=== PATIENT | female | born 1990 | race Caucasian/White ===

== ENCOUNTER 2017-06-12 09:52 | Emergency (ER) | payer OTHER ==
[~2017-06-12] VITALS: Ht 165.1 cm; Wt 83.0 kg
[~2017-06-12 09:52] MED LIST: ADDE30XR PO; HYDR-3533 PO; PERC5TAB12 PO; PHEN0.4T PO; PROM25TA5 PO; ZOFR4TAB3 SL
[2017-06-12 09:55] VITALS: BP 121/69; PULSE 68; RESP 16; TEMP 97.9; O2SAT 100
[2017-06-12] MEDS ORDERED: SODIUM CHLOR 0.9% 1000 ML INJ 1,000 ML IV SCH (10:11)
[2017-06-12 10:15] VITALS: O2SAT 100
[2017-06-12] MEDS ORDERED: ONDANSETRON HCL 4 MG/2 ML VIAL IVP ONE (10:15)
[2017-06-12] MEDS ORDERED: MORPHINE SULFATE 8 MG/ML INJ IV PUSH ONE (10:15)
[2017-06-12] MEDS ORDERED: KETOROLAC TROMETHAMINE 30 MG/ML (IVP) VIAL IVP ONE (10:15)
[2017-06-12] MEDS ORDERED: SODIUM CHLORIDE 0.9% FLUSH 10 ML FLUSH IV FLUSH PRN (10:15)
[2017-06-12 10:39] LABS: CHLORIDE 109 MEQ/L (98-107); POTASSIUM 4.3 MEQ/L (3.5-5.1); SODIUM (NA) 141 MEQ/L (136-145)
[2017-06-12 10:42] LABS: ANION GAP 8 MEQ/L (5-15); AUTOMATED NEUTROPHIL # 5.5 TH/MM3 (1.8-7.7); BASOPHIL # 0.2 TH/MM3 (0-0.2); BASOPHIL % 3.1 % (0.0-2.0); BICARBONATE 24.2 MEQ/L (21.0-32.0); BLOOD UREA NITROGEN 14 MG/DL (7-18); EOSINOPHIL % 0.1 % (0.0-4.0); HEMATOCRIT 32.5 % (35.0-46.0); LYMPH % 16.9 % (9.0-44.0); LYMPHOCYTE # 1.3 TH/MM3 (1.0-4.8); MEAN CELL VOLUME 74.9 FL (80.0-100.0); MEAN CORPUSCULAR HEMOGLOBIN 23.4 PG (27.0-34.0); MEAN CORPUSCULAR HGB CONC 31.3 % (32.0-36.0); MONO % 5.9 % (0.0-8.0); PLATELET COUNT 141 TH/MM3 (150-450); RED BLOOD COUNT 4.33 MIL/MM3 (4.00-5.30); RED CELL DISTRIBUTION WIDTH 17.3 % (11.6-17.2); WHITE BLOOD COUNT 7.4 TH/MM3 (4.0-11.0)
[2017-06-12 10:44] LABS: HEMO FLAGS AUTO DIFF
[2017-06-12 10:45] LABS: ALT (GPT) 16 U/L (10-53); AST (GOT) 14 U/L (15-37); GLOMERULAR FILTRATION RATE 116 ML/MIN (>89)
[2017-06-12 10:47] LABS: TOTAL BILIRUBIN ADULT 0.4 MG/DL (0.2-1.0)
[2017-06-12 10:48] LABS: ALKALINE PHOSPHATASE 71 U/L (45-117)
[2017-06-12 11:00] LABS: OVALOCYTES 1+ (NORMAL); PLATELET ESTIMATE SMEAR NORMAL (NORMAL); PLATELET MORPHOLOGY NORMAL (NORMAL); ROULEAUX PRESENT (NORMAL); SCAN/DIFF AUTO DIFF CONFIRMED
[2017-06-12 11:02] VITALS: BP 108/57; PULSE 78; RESP 19; O2SAT 100
--- NOTE | 2017-06-12 11:03 | RADRPT ---
EXAM DATE/TIME: 06/12/2017 10:32 [place] COMPARISON: CT ABDOMEN & PELVIS W/O CONTRAST, October 03, 2016, 1:22. INDICATIONS : Left flank pain with a history of previous stones. ORAL CONTRAST: No oral contrast ingested. RADIATION DOSE: 14.62 CTDIvol (mGy) MEDICAL HISTORY : Renal calculi. SURGICAL HISTORY : stone removal ENCOUNTER: Initial ACUITY: 1 day PAIN SCALE: 10/10 LOCATION: Left flank TECHNIQUE: Volumetric scanning of the abdomen and pelvis was performed. Using automated exposure control and adjustment of the mA and/or kV according to patient size, radiation dose was kept as low as reasonably achievable to obtain optimal diagnostic quality images. DICOM format image data is av ailable electronically for review and comparison. FINDINGS: CT Abdomen: There are 3 separate stones in the right kidney the largest measures almost 4 mm in size. There is moderate hydronephrosis in the left kidney not present previously due to and approximate 4- 5 mm mid ureteral stone which is one of the stones identified previously now migrated into the ureter . There is 4 mm stone in left upper pole kidney as well. The liver, spleen, pancreas, adrenals are u nremarkable. There is no evidence for any appreciable pathological adenopathy, free fluid, or bowel o bstruction. CT pelvis: There is no evidence for mass, abscess formation, or any significant adenopathy within the pelvis. There is chronic spondylolysis L5 bilaterally. CONCLUSION: There is an approximate 4-5 mm left mid ureteral stone which was in the left kidney o n the prior examination now migrated into the ureter causing moderate hydronephrosis. Marcelino Talley MD on June 12, 2017 at 10:57 Board Certified Radiologist. This report was verified electronically.
--- NOTE | 2017-06-12 11:06 | PD ---
HPI Chief Complaint: Flank/Kidney Pain Time Seen by Provider: 10:07 Travel History International Travel<30 days: No Contact w/Intl Traveler<30days: No Traveled to known affect area: No History of Present Illness HPI Patient is a 26 year old female, with history of renal stones, who comes in complaining of left flank pain and nausea. She says it started this morning, suddenly. She says it feels like in the past when she has had kidney stones. She denies any vomiting. She says she has been feeling sick lately, with what she thought was a sinus infection. She denies chest pain, cough, or SOB. She denies any dysuria. She went to an urgent care first, where she had a UA done, which showed blood in the urine. She was sent here or further management. [facility] Past Medical History ADD: Yes Diminished Hearing: No Kidney Stones: Yes Musculoskeletal: Yes (NEUROMUSCULAR DISEASE) Immunizations Current: Yes Tetanus Vaccination: < 5 Years ?: Not LMP: 06/05/17 Social History Alcohol Use: No Tobacco Use: No Substance Use: No Allergies-Medications (Allergen,Severity, Reaction): Coded Allergies: Latex (Verified Allergy, Severe, Rash, 06/12/17) Shellfish (Verified Allergy, Severe, 06/12/17) Omnicef (Verified Allergy, Unknown, 06/12/17) Seafood (Verified Allergy, Unknown, 06/12/17) Reported Meds & Prescriptions Reported Meds & Active Scripts Active Zofran Odt (Ondansetron Odt) 4 Mg Tab 4 Mg SL Q6HR PRN Percocet (Oxycodone-Acetaminophen) 5-325 mg Tab 1 Tab PO Q6H PRN Cipro (Ciprofloxacin HCl) 500 Mg Tab 500 Mg PO BID Flomax (Tamsulosin HCl) 0.4 Mg Cap 0.4 Mg PO HS Lortab (Hydrocodone-Acetaminophen) 5-325 Mg Tab 1 Tab PO Q6H PRN Review of Systems Except as stated in HPI: all other systems reviewed are Neg General / Constitutional: No: Chills Eyes: No: Blurred Vision HENT: Positive: Congestion, Nosebleed, No: Headaches, Lightheadedness Cardiovascular: No: Chest Pain or Discomfort Respiratory: No: Cough, Shortness of Breath Gastrointestinal: Positive: Nausea, Abdominal Pain, No: Vomiting Genitourinary: Positive: Flank Pain, No: Dysuria Musculoskeletal: No: Weakness Skin: No Rash, No Change in Pigmentation Neurologic: No: Weakness, Dizziness Physical Exam Narrative GENERAL: Awake and alert, in no acute distress. SKIN: Focused skin assessment warm/dry. HEAD: Atraumatic. Normocephalic. EYES: Pupils equal and round. No scleral icterus. ENT: No nasal bleeding or discharge. Mucous membranes pink and moist. NECK: Trachea midline. No JVD. CARDIOVASCULAR: Regular rate and rhythm. No murmur appreciated. RESPIRATORY: No accessory muscle use. Clear to auscultation. Breath sounds equal bilaterally. GASTROINTESTINAL: Abdomen soft, non-tender, nondistended. Left CVA tenderness. MUSCULOSKELETAL: No obvious deformities. No clubbing. No cyanosis. No edema. NEUROLOGICAL: Awake and alert. No obvious cranial nerve deficits. Motor grossly within normal limits. Normal speech. PSYCHIATRIC: Appropriate mood and affect; insight and judgment normal. Data Data Last Documented VS Vital Signs Date Time Temp Pulse Resp B/P Pulse Ox O2 Delivery O2 Flow Rate FiO2 06/12/17 12:25 122/80 100 06/12/17 11:02 78 19 Room Air 06/12/17 09:55 97.9 Orders Complete Blood Count With Diff (06/12/17 10:11) Comprehensive Metabolic Panel (06/12/17 10:11) Urinalysis - C+S If Indicated (06/12/17 10:11) Ua Includes Microscopic (06/12/17 10:11) Ct Abd/Pel W/O Iv Contrast (06/12/17 10:11) Iv Access Insert/Monitor (06/12/17 10:11) Ecg Monitoring (06/12/17 10:11) Oximetry (06/12/17 10:11) Ondansetron Inj (Zofran Inj) (06/12/17 10:15) Sodium Chlor 0.9% 1000 Ml Inj (Ns 1000 M (06/12/17 10:11) Sodium Chloride 0.9% Flush (Ns Flush) (06/12/17 10:15) Ketorolac Inj (Toradol Inj) (06/12/17 10:15) Ed Urine Pregnancytest Poc (06/12/17 10:11) Morphine Inj (Morphine Inj) (06/12/17 10:15) Oxycodone-Acetamin 5-325 Mg (Percocet (06/12/17 11:45) Urine Culture (06/12/17 11:49) Labs Laboratory Tests Test 06/12/17 06/12/17 10:15 11:49 White Blood Count 7.4 TH/MM3 Red Blood Count 4.33 MIL/MM3 Hemoglobin 10.1 GM/DL Hematocrit 32.5 % Mean Corpuscular Volume 74.9 FL Mean Corpuscular Hemoglobin 23.4 PG Mean Corpuscular Hemoglobin 31.3 % Concent Red Cell Distribution Width 17.3 % Platelet Count 141 TH/MM3 Mean Platelet Volume 10.4 FL Neutrophils (%) (Auto) 74.0 % Lymphocytes (%) (Auto) 16.9 % Monocytes (%) (Auto) 5.9 % Eosinophils (%) (Auto) 0.1 % Basophils (%) (Auto) 3.1 % Neutrophils # (Auto) 5.5 TH/MM3 Lymphocytes # (Auto) 1.3 TH/MM3 Monocytes # (Auto) 0.4 TH/MM3 Eosinophils # (Auto) 0.0 TH/MM3 Basophils # (Auto) 0.2 TH/MM3 CBC Comment AUTO DIFF Differential Comment AUTO DIFF CONFIRMED Platelet Estimate NORMAL Platelet Morphology Comment NORMAL Ovalocytes 1+ Rouleau PRESENT Sodium Level 141 MEQ/L Potassium Level 4.3 MEQ/L Chloride Level 109 MEQ/L Carbon Dioxide Level 24.2 MEQ/L Anion Gap 8 MEQ/L Blood Urea Nitrogen 14 MG/DL Creatinine 0.63 MG/DL Estimat Glomerular Filtration 116 ML/MIN Rate Random Glucose 96 MG/DL Calcium Level 8.5 MG/DL Total Bilirubin 0.4 MG/DL Aspartate Amino Transf 14 U/L (AST/SGOT) Alanine Aminotransferase 16 U/L (ALT/SGPT) Alkaline Phosphatase 71 U/L Total Protein 7.5 GM/DL Albumin 4.1 GM/DL Urine Collection Type CLEAN CATCH Urine Color YELLOW Urine Turbidity MOD Urine pH 5.5 Urine Specific [place] 1.031 Urine Protein 100 mg/dL Urine Glucose (UA) NEG mg/dL Urine Ketones 40 mg/dL Urine Occult Blood LARGE Urine Nitrite NEG Urine Bilirubin NEG Urine Leukocyte Esterase TRACE Urine RBC 100-200 /hpf Urine WBC 3-5 /hpf Urine Squamous Epithelial > 8 /hpf Cells Urine Amorphous Sediment MOD Urine Bacteria MOD /hpf Microscopic Urinalysis Comment CULTURE INDICATED Urine Collection Time 1149 MDM Medical Decision Making Medical Screen Exam Complete: Yes Emergency Medical Condition: Yes Medical Record Reviewed: Yes Differential Diagnosis UTI vs pyelonephritis vs renal stone Narrative Course Patient is a 26 year old female, with history of kidney stones, who comes in complaining of left flank pain. Exam shows left CVA tenderness. IV established , labs sent. Creatinine is within normal limits. WBCs within normal limits. Hgb is 10.1, but she did just finish her period. Given IVF, Zofran, Toradol, Morphine. CT abd/pelvis obtained, shows a left-sided renal stone at the UVJ, 4.6 mm. Patient has a urologist to follow up with. She still has some pain. Given Percocet. She'll be discharged with prescriptions for Flomax, Percocet, Cipro. She is advised to increase her fluid intake. Advised follow-up with urology. Advised to return to the ED as needed for any worsening symptoms. Diagnosis Primary Impression: Renal stone Additional Impression: Urinary tract infection Qualified Code: N30.01 - Acute cystitis with hematuria Patient Instructions: General Instructions, Kidney Stones (ED), Urinary Tract Infection in Women (ED) Additional Instructions: Take all of your antibiotic. Take ibuprofen for pain, and Percocet as needed for severe pain. Follow-up with your urologist. Increase her fluid intake. Return to the emergency department for any worsening symptoms. Scripts Phenazopyridine (Pyridium)100 Mg Adl197 Mg PO Q8HR 3 Days Ref 0 Prov:Jennifer Bill MD 06/12/17 Ondansetron Odt (Zofran Odt)4 Mg Tab4 Mg SL Q6HR PRN (Nausea/Vomiting) #10 TAB Ref 0 Prov:Jennifer Bill MD 06/12/17 Oxycodone-Acetaminophen (Percocet)5-325 mg Tab1 Tab PO Q6H PRN (PAIN) #12 TAB Ref 0 Prov:Jennifer Bill MD 06/12/17 Ciprofloxacin (Cipro)500 Mg Lie505 Mg PO BID #7 TAB Ref 0 Prov:Jennifer Bill MD 06/12/17 Tamsulosin (Flomax)0.4 Mg Cap0.4 Mg PO HS #7 CAP Ref 0 Prov:Jennifer Bill MD 06/12/17 Disposition: 01 DISCHARGE HOME Condition: Stable Jennifer Bill MD Jun 12, 2017 11:06
[2017-06-12] MEDS ORDERED: oxyCODONE/ACETAMINOPHEN 5 MG/325 MG TAB PO ONE (11:45)
[2017-06-12 11:57] LABS: BLOOD, URINE LARGE (NEG); GLUCOSE,URINE NEG (NEG); KETONE, URINE 40 mg/dL (NEG); NITRITE,URINE NEG (NEG); PH, URINE 5.5 (5.0-8.5)
[2017-06-12 12:04] LABS: METHOD OF COLLECTION CLEAN CATCH; URINE COLOR YELLOW (YELLW/STRAW)
[2017-06-12 12:06] LABS: RBC, URINE 100-200 /hpf (0-3)
[2017-06-12 12:07] LABS: BACTERIA, URINE MOD /hpf; COMMENT (UR) CULTURE INDICATED; COMMENT2 (UR) MUCOUS PRESENT; CULTURE IF INDICATED CULTURE INDICATED; SQUAMOUS EPITHELIAL CELL URINE > 8 /hpf (0-5)
[2017-06-12] MEDS ORDERED: CIPR-9 PO (12:15)
[2017-06-12] MEDS ORDERED: PERC5TAB12 PO (12:15)
[2017-06-12] MEDS ORDERED: TAMS5CAP PO (12:15)
[2017-06-12] MEDS ORDERED: ZOFR4TAB3 SL (12:16)
[2017-06-12 12:25] VITALS: BP 122/80
[2017-06-12] MEDS ORDERED: PHEN0.4T PO (12:32)
== END 2017-06-12 12:36 | disposition home or self-care (01) ==
LOC: PHED 09:52
DX: N20.2 Calculus of kidney with calculus of ureter (principal); N39.0 Urinary tract infection, site not specified; R31.9 Hematuria, unspecified; Z87.442 Personal history of urinary calculi
CPT/HCPCS: 74176; 80053; 81001; 84703; 85025; 87086; 96361; 96374; 96375; 99285; J1885; J2270; J2405; J7030

== ENCOUNTER 2017-06-13 17:31 | Inpatient (IN) | payer OTHER ==
[~2017-06-13] VITALS: Ht 165.1 cm; Wt 86.5 kg
[~2017-06-13 17:31] MED LIST changes: -ADDE30XR PO; +CIPR-9 PO; -PROM25TA5 PO; +TAMS5CAP PO
[2017-06-13 17:41] VITALS: BP 113/68; PULSE 73; RESP 14; TEMP 99.2; O2SAT 100
[2017-06-13 19:00] VITALS: BP 124/72; PULSE 78; RESP 20; O2SAT 100
[2017-06-13] MEDS ORDERED: SODIUM CHLOR 0.9% 1000 ML INJ 1,000 ML IV SCH (19:39)
--- NOTE | 2017-06-13 19:44 | PD ---
HPI Chief Complaint: Complaint Time Seen by Provider: 19:22 Travel History International Travel<30 days: No Contact w/Intl Traveler<30days: No Traveled to known affect area: No History of Present Illness HPI 26-year-old female complaining of left-sided abdominal pain and left flank pain. Patient states that the pain started yesterday. Patient was seen in emergency room yesterday and CT abdomen and pelvis shows 4-5 mm mid ureteral stone on the left side with moderate hydronephrosis. Patient was given IV fluid , pain medication and discharged home with prescription for Pyridium, Zofran, Percocet, Cipro and Flomax. Patient has intractable pain with persistent vomiting and unable to keep anything down today. Patient states that the pain is 10 out of 10. Patient denies any fever chills. Patient has history kidney stone and was seen by Dr. Bhatt in the past. [facility] Past Medical History ADD: Yes Diminished Hearing: No Kidney Stones: Yes Musculoskeletal: Yes (NEUROMUSCULAR DISEASE) Immunizations Current: Yes Tetanus Vaccination: < 5 Years Influenza Vaccination: No ?: Not LMP: 5 DAYS Past Surgical History Genitourinary Surgery: Yes (CYSTOSCOPY) Social History Alcohol Use: No Tobacco Use: No Substance Use: No Allergies-Medications (Allergen,Severity, Reaction): Coded Allergies: Latex (Verified Allergy, Severe, Rash, 06/13/17) Shellfish (Verified Allergy, Severe, 06/13/17) Omnicef (Verified Allergy, Unknown, 06/13/17) Seafood (Verified Allergy, Unknown, 06/13/17) Reported Meds & Prescriptions Reported Meds & Active Scripts Active Pyridium (Phenazopyridine HCl) 100 Mg Tab 100 Mg PO Q8HR 3 Days Zofran Odt (Ondansetron Odt) 4 Mg Tab 4 Mg SL Q6HR PRN Percocet (Oxycodone-Acetaminophen) 5-325 mg Tab 1 Tab PO Q6H PRN Cipro (Ciprofloxacin HCl) 500 Mg Tab 500 Mg PO BID Flomax (Tamsulosin HCl) 0.4 Mg Cap 0.4 Mg PO HS Review of Systems General / Constitutional: No: Fever Eyes: No: Visual changes HENT: No: Headaches Cardiovascular: No: Chest Pain or Discomfort Respiratory: No: Shortness of Breath Gastrointestinal: Positive: Nausea, Vomiting, Abdominal Pain Genitourinary: No: Dysuria Musculoskeletal: No: Pain Skin: No Rash Neurologic: No: Weakness Psychiatric: No: Depression Endocrine: No: Polydipsia Hematologic/Lymphatic: No: Easy Bruising Physical Exam Narrative GENERAL: Well-nourished, well-developed patient. SKIN: Focused skin assessment warm/dry. HEAD: Normocephalic. EYES: No scleral icterus. No injection or drainage. NECK: Supple, trachea midline. No JVD or lymphadenopathy. CARDIOVASCULAR: Regular rate and rhythm without murmurs, gallops, or rubs. RESPIRATORY: Breath sounds equal bilaterally. No accessory muscle use. GASTROINTESTINAL: Abdomen soft, nondistended. Patient has mild to moderate tenderness mid abdomen and left flank area. MUSCULOSKELETAL: No cyanosis, or edema. BACK: Nontender without obvious deformity. No CVA tenderness. Neurologic exam normal. Data Data Last Documented VS Vital Signs Date Time Temp Pulse Resp B/P Pulse Ox O2 Delivery O2 Flow Rate FiO2 06/13/17 19:00 78 20 124/72 100 Room Air 06/13/17 17:41 99.2 Orders Ed Urine Pregnancytest Poc (06/13/17 19:31) Basic Metabolic Panel (Bmp) (06/13/17 19:39) Complete Blood Count With Diff (06/13/17 19:39) Iv Access Insert/Monitor (06/13/17 19:39) Ecg Monitoring (06/13/17 19:39) Oximetry (06/13/17 19:39) Ondansetron Inj (Zofran Inj) (06/13/17 19:45) Pantoprazole Inj (Protonix Inj) (06/13/17 19:45) Sodium Chlor 0.9% 1000 Ml Inj (Ns 1000 M (06/13/17 19:39) Hydromorphone Pf Inj (Dilaudid Pf Inj) (06/13/17 19:45) MDM Medical Decision Making Medical Screen Exam Complete: Yes Emergency Medical Condition: Yes Medical Record Reviewed: Yes Differential Diagnosis Differential diagnosis including nephrolithiasis, pyelonephritis. Narrative Course 26-year-old female with intractable pain left flank and left mid abdomen area. CT abdomen and pelvis yesterday positive for left kidney stone with hydronephrosis. Patient has intractable pain with persistent nausea vomiting. Normal saline solution 1 25 cc an hour. Dilaudid 1 mg IV. Zofran 4 mg IV. Diagnosis Primary Impression: Nephrolithiasis Additional Impression: Intractable abdominal pain Admitting Information Admitting Physician Requests: Admit Jose Alejandro Danielson MD Jun 13, 2017 19:44
[2017-06-13] MEDS ORDERED: HYDROmorphone HCL PF 1 MG/ML VIAL IVS ONE (19:45)
[2017-06-13] MEDS ORDERED: ONDANSETRON HCL 4 MG/2 ML VIAL IVP ONE (19:45)
[2017-06-13] MEDS ORDERED: PANTOPRAZOLE SODIUM 40 MG VIAL IVP ONE (19:45)
[2017-06-13 19:50] LABS: AUTOMATED NEUTROPHIL # 7.1 TH/MM3 (1.8-7.7); BASOPHIL # 0.1 TH/MM3 (0-0.2); BASOPHIL % 0.6 % (0.0-2.0); EOSINOPHIL % 0.4 % (0.0-4.0); HEMATOCRIT 30.4 % (35.0-46.0); LYMPH % 15.9 % (9.0-44.0); LYMPHOCYTE # 1.6 TH/MM3 (1.0-4.8); MEAN CELL VOLUME 75.3 FL (80.0-100.0); MEAN CORPUSCULAR HEMOGLOBIN 23.2 PG (27.0-34.0); MEAN CORPUSCULAR HGB CONC 30.9 % (32.0-36.0); MONO % 10.8 % (0.0-8.0); NEUT % 72.3 % (16.0-70.0); PLATELET COUNT 144 TH/MM3 (150-450); RED BLOOD COUNT 4.04 MIL/MM3 (4.00-5.30); RED CELL DISTRIBUTION WIDTH 16.9 % (11.6-17.2); WHITE BLOOD COUNT 9.9 TH/MM3 (4.0-11.0)
[2017-06-13 19:53] VITALS: BP 107/72; PULSE 82; RESP 16; O2SAT 100
[2017-06-13 19:54] VITALS: BP 107/72; PULSE 82; RESP 16; O2SAT 99
[2017-06-13] MEDS ORDERED: BISACODYL 10 MG SUPP RECTAL PRN (20:00)
[2017-06-13] MEDS ORDERED: SENNOSIDES 8.6 MG TAB PO PRN (20:00)
[2017-06-13] MEDS ORDERED: LACTULOSE SYRUP 20 GM/30 ML CUP PO PRN (20:00)
[2017-06-13] MEDS ORDERED: SODIUM CHLORIDE 0.9% FLUSH 10 ML FLUSH IV FLUSH PRN (20:00)
[2017-06-13] MEDS ORDERED: ACETAMINOPHEN 325 MG TAB PO PRN (20:00)
[2017-06-13] MEDS ORDERED: MAGNESIUM HYDROXIDE SUSP 30 ML CUP PO PRN (20:00)
[2017-06-13 20:01] LABS: HEMO FLAGS AUTO DIFF
[2017-06-13 20:04] LABS: POTASSIUM 3.5 MEQ/L (3.5-5.1)
[2017-06-13 20:07] LABS: BICARBONATE 24.2 MEQ/L (21.0-32.0)
[2017-06-13 20:33] VITALS: BP 104/70; PULSE 82; RESP 16; O2SAT 98
[2017-06-13 20:52] LABS: OVALOCYTES 2+ (NORMAL)
[2017-06-13 20:53] LABS: PLATELET ESTIMATE SMEAR LOW (NORMAL); PLATELET MORPHOLOGY NORMAL (NORMAL); SCAN/DIFF AUTO DIFF CONFIRMED
[2017-06-13] MEDS: CIPROFLOXACIN 400 MG PREMIX 200 ML IV SCH (20:54)
[2017-06-13] MEDS: SODIUM CHLOR 0.9% 1000 ML INJ 1,000 ML IV SCH (20:54)
[2017-06-13] MEDS: SODIUM CHLORIDE 0.9% FLUSH 10 ML FLUSH IV FLUSH SCH (21:00)
[2017-06-13 21:12] VITALS: BP 106/71; PULSE 73; RESP 20; TEMP 98.9; O2SAT 98
[2017-06-13] MEDS: DOCUSATE SODIUM 50 MG/SENNA 8.6 MG TAB PO SCH (21:47)
[2017-06-13] MEDS: ONDANSETRON HCL 4 MG/2 ML VIAL IVP PRN (23:18)
[2017-06-13] MEDS: HYDROmorphone HCL PF 1 MG/ML VIAL IV PRN (23:19)
[2017-06-14] VITALS: BP 106/68; PULSE 73; RESP 20; TEMP 97.4; O2SAT 97
[2017-06-14] MEDS: SODIUM CHLOR 0.9% 1000 ML INJ 1,000 ML IV SCH ×2 (05:23→15:49)
[2017-06-14] MEDS: HYDROmorphone HCL PF 1 MG/ML VIAL IV PRN ×5 (05:24→23:29)
[2017-06-14] MEDS: ONDANSETRON HCL 4 MG/2 ML VIAL IVP PRN ×4 (05:31→23:28)
[2017-06-14 06:45] LABS: AUTOMATED NEUTROPHIL # 6.4 TH/MM3 (1.8-7.7); BASOPHIL % 0.4 % (0.0-2.0); EOSINOPHIL % 0.1 % (0.0-4.0); HEMATOCRIT 28.2 % (35.0-46.0); LYMPH % 12.9 % (9.0-44.0); LYMPHOCYTE # 1.1 TH/MM3 (1.0-4.8); MEAN CELL VOLUME 74.9 FL (80.0-100.0); MEAN CORPUSCULAR HEMOGLOBIN 22.8 PG (27.0-34.0); MEAN CORPUSCULAR HGB CONC 30.4 % (32.0-36.0); MONO % 12.3 % (0.0-8.0); NEUT % 74.3 % (16.0-70.0); PLATELET COUNT 121 TH/MM3 (150-450); RED BLOOD COUNT 3.76 MIL/MM3 (4.00-5.30); RED CELL DISTRIBUTION WIDTH 16.6 % (11.6-17.2); WHITE BLOOD COUNT 8.6 TH/MM3 (4.0-11.0)
[2017-06-14 06:53] LABS: HEMO FLAGS AUTO DIFF
[2017-06-14 07:00] LABS: CHLORIDE 113 MEQ/L (98-107); POTASSIUM 3.8 MEQ/L (3.5-5.1); SODIUM (NA) 145 MEQ/L (136-145)
[2017-06-14 07:25] LABS: OVALOCYTES 1+ (NORMAL)
[2017-06-14 07:26] LABS: PLATELET ESTIMATE SMEAR LOW (NORMAL); PLATELET MORPHOLOGY NORMAL (NORMAL); ROULEAUX PRESENT (NORMAL); SCAN/DIFF AUTO DIFF CONFIRMED
[2017-06-14 07:32] LABS: ALKALINE PHOSPHATASE 61 U/L (45-117); ALT (GPT) 11 U/L (10-53); ANION GAP 8 MEQ/L (5-15); AST (GOT) 11 U/L (15-37); BICARBONATE 24.3 MEQ/L (21.0-32.0); BLOOD UREA NITROGEN 8 MG/DL (7-18); GLOMERULAR FILTRATION RATE 76 ML/MIN (>89); TOTAL BILIRUBIN ADULT 0.6 MG/DL (0.2-1.0)
--- NOTE | 2017-06-14 07:55 | HHI.HP ---
[facility] Non[facility]Staff Admission Diagnosis nephrolithiasis. Intractable pain. Diagnoses: (1) Nephrolithiasis Diagnosis: Principal Chief Complaint: left flank pain Travel History International Travel<30 Days: No Contact w/Intl Traveler <30 Da: No Traveled to Known Affected Are: No History of Present Illness patient is a 26 y/o female with history of nephrolithiasis who presented to ER with left flank pain. she says that the pain started two days ago. pain was localized to left flank. pain was associated with nausea and vomiting. she came to ER and was discharged with cipro and percoect. she says that the pain didn't subside despite taking the pain medications. she reports some fever and chills at home along with dysuria and gross hematuria. she has a history of kidney stone and she says that she had cystoscopy last October. Review of Systems Constitutional: COMPLAINS OF: Fever, Chills, DENIES: Weight loss, Night Sweats Eyes: DENIES: Blurred vision, Diplopia, Vision loss, Double Vision Ears, nose, mouth, throat: DENIES: Tinnitus, Vertigo, Throat pain, Epistaxis Respiratory: DENIES: Apneas, Cough, Snoring, Wheezing, Hemoptysis, Sputum production, Shortness of breath Cardiovascular: DENIES: Chest pain, Palpitations, Syncope, Dyspnea on Exertion , PND, Lower Extremity Edema, Orthopnea, Claudication Gastrointestinal: COMPLAINS OF: Abdominal pain, Nausea, Vomiting, DENIES: Black stools, Bloody stools, Constipation, Diarrhea, Difficulty Swallowing, Anorexia Genitourinary: COMPLAINS OF: Hematuria, Dysuria, DENIES: Urinary frequency, Urgency Musculoskeletal: DENIES: Joint pain, Muscle aches, Stiffness, Joint Swelling Integumentary: DENIES: Rash Neurologic: DENIES: Abnormal gait, Headache, Localized weakness, Paresthesias, Seizures, Speech Problems, Tremor, Poor Balance Psychiatric: DENIES: Anxiety, Confusion, Mood changes, Depression, Hallucinations, Agitation, Suicidal Ideation, Homicidal Ideation, Delusions Past Family Social History Past Medical History neuromuscular disorder kidney stone Past Surgical History cystoscopy Reported Medications none Allergies: Coded Allergies: Latex (Verified Allergy, Severe, Rash, 06/13/17) Shellfish (Verified Allergy, Severe, 06/13/17) Omnicef (Verified Allergy, Unknown, 06/13/17) Seafood (Verified Allergy, Unknown, 06/13/17) Active Ordered Medications Current Medications Ondansetron HCl (Zofran Inj) 4 mg ONCE ONCE IVP Last administered on 19:52; Start 06/13/17 at 19:45; Stop 06/13/17 at 19:46; Status DC Pantoprazole Sodium 40 mg 40 mg ONCE ONCE IVP Last administered on 06/13/17 19:51; Start 06/13/17 at 19:45; Stop 06/13/17 at 19:46; Status DC Sodium Chloride (NS 1000 ml Inj) 1,000 ml @ 125 mls/hr Q8H IV Last administered on 06/13/17 19:52; Start 06/13/17 at 19:39; Stop 06/14/17 at 03:38 ; Status DC Hydromorphone HCl 1 mg 1 mg ONCE ONCE IVS Last administered on 06/13/17 19:52 ; Start 06/13/17 at 19:45; Stop 06/13/17 at 19:46; Status DC Ciprofloxacin/ Dextrose 200 ml @ 200 mls/hr Q12H IV Last administered on 20:54; Start 06/13/17 at 20:00 Sodium Chloride (NS 1000 ml Inj) 1,000 ml @ 100 mls/hr Q10H IV Last administered on 06/14/17 05:23; Start 06/13/17 at 19:49 Sodium Chloride (NS Flush) 2 ml UNSCH PRN IV FLUSH FLUSH AFTER USING IV ACCESS ; Start 06/13/17 at 20:00 Sodium Chloride (NS Flush) 2 ml BID IV FLUSH ; Start 06/13/17 at 21:00 Ondansetron HCl (Zofran Inj) 4 mg Q6H PRN IVP NAUSEA OR VOMITING Last administered on 06/14/17 05:31; Start 06/13/17 at 20:00 Acetaminophen (Tylenol) 650 mg Q6H PRN PO FEVER/PAIN SCALE 1 TO 2; Start at 20:00 Acetaminophen/ Hydrocodone Bitart ([place] 5-325 Mg) 1 tab Q4H PRN PO PAIN SCALE 3 TO 5; Start 06/13/17 at 20:00 Hydromorphone HCl (Dilaudid Pf Inj) 1 mg Q3H PRN IV Pain 6-10 Last administered on 06/14/17 05:24; Start 06/13/17 at 20:00 Senna/Docusate Sodium (Sally-Colace) 1 tab BID PO Last administered on 21:47; Start 06/13/17 at 21:00 Magnesium Hydroxide (Milk Of Magnesia Liq) 30 ml Q12H PRN PO MILD - MODERATE CONSTIPATION; Start 06/13/17 at 20:00 Sennosides (Senokot) 17.2 mg Q12H PRN PO MODERATE - SEVERE CONSTIPATION; Start 06/13/17 at 20:00 Bisacodyl (Dulcolax Supp) 10 mg DAILY PRN RECTAL SEVERE CONSITIPATION; Start at 20:00 Lactulose (Lactulose Liq) 30 ml DAILY PRN PO SEVERE CONSITIPATION; Start at 20:00 Family History not significant. Social History no smoking or drinking. Physical Exam Vital Signs Vital Signs Date Time Temp Pulse Resp B/P Pulse Ox O2 Delivery O2 Flow Rate FiO2 06/14/17 00:00 97.4 73 20 106/68 97 06/13/17 21:12 98.9 73 20 106/71 98 06/13/17 20:33 82 16 104/70 98 Room Air 06/13/17 19:54 82 16 107/72 99 Room Air 06/13/17 19:53 82 16 107/72 100 Room Air 06/13/17 19:00 78 20 124/72 100 Room Air 06/13/17 18:26 06/13/17 17:41 99.2 73 14 113/68 100 Room Air Physical Exam GENERAL: This is a well-nourished, well-developed patient, in no apparent distress. SKIN: No rashes, ecchymoses or lesions. Cool and dry. HEAD: Atraumatic. Normocephalic. No temporal or scalp tenderness. EYES: Pupils equal round and reactive. Extraocular motions intact. No scleral icterus. No injection or drainage. ENT: Nose without bleeding, purulent drainage or septal hematoma. Throat without erythema, tonsillar hypertrophy or exudate. Uvula midline. Airway patent. NECK: Trachea midline. No JVD or lymphadenopathy. Supple, nontender, no meningeal signs. CARDIOVASCULAR: Regular rate and rhythm without murmurs, gallops, or rubs. RESPIRATORY: Clear to auscultation. Breath sounds equal bilaterally. No wheezes , rales, or rhonchi. GASTROINTESTINAL: left flank tenderness MUSCULOSKELETAL: Extremities without clubbing, cyanosis, or edema. No joint tenderness, effusion, or edema noted. No calf tenderness. Negative Homans sign bilaterally. NEUROLOGICAL: Awake and alert. Cranial nerves II through XII intact. Motor and sensory grossly within normal limits. Five out of 5 muscle strength in all muscle groups. Normal speech. Laboratory Laboratory Tests Test 06/13/17 06/14/17 19:30 05:15 White Blood Count 9.9 8.6 Red Blood Count 4.04 3.76 Hemoglobin 9.4 8.6 Hematocrit 30.4 28.2 Mean Corpuscular Volume 75.3 74.9 Mean Corpuscular Hemoglobin 23.2 22.8 Mean Corpuscular Hemoglobin 30.9 30.4 Concent Red Cell Distribution Width 16.9 16.6 Platelet Count 144 121 Mean Platelet Volume 12.7 12.0 Neutrophils (%) (Auto) 72.3 74.3 Lymphocytes (%) (Auto) 15.9 12.9 Monocytes (%) (Auto) 10.8 12.3 Eosinophils (%) (Auto) 0.4 0.1 Basophils (%) (Auto) 0.6 0.4 Neutrophils # (Auto) 7.1 6.4 Lymphocytes # (Auto) 1.6 1.1 Monocytes # (Auto) 1.1 1.1 Eosinophils # (Auto) 0.0 0.0 Basophils # (Auto) 0.1 0.0 CBC Comment AUTO DIFF AUTO DIFF Differential Comment AUTO DIFF AUTO DIFF CONFIRMED CONFIRMED Platelet Estimate LOW LOW Platelet Morphology Comment NORMAL NORMAL Ovalocytes 2+ 1+ Sodium Level 144 145 Potassium Level 3.5 3.8 Chloride Level 112 113 Carbon Dioxide Level 24.2 24.3 Anion Gap 8 8 Blood Urea Nitrogen 10 8 Creatinine 0.95 0.91 Estimat Glomerular Filtration 72 76 Rate Random Glucose 81 85 Calcium Level 8.4 8.2 Rouleau PRESENT Total Bilirubin 0.6 Aspartate Amino Transf 11 (AST/SGOT) Alanine Aminotransferase 11 (ALT/SGPT) Alkaline Phosphatase 61 Total Protein 6.3 Albumin 3.3 Result Diagram: 06/14/1715 06/14/1715 Assessment and Plan Assessment and Plan A/P - nephrolithiasis with left sided hydronephrosis continue with supportive care with IV fluid, pain control and antiemetics as needed. urology consulted. -anemia- hypochromic, microcytic- chronic- check iron panel and will monitor. Discussed Condition With the patient. Physician Certification 2 Midnight Certification Type: Admission for Inpatient Services Order for Inpatient Services The services are ordered in accordance with Medicare regulations or non- Medicare payer requirements, as applicable. In the case of services not specified as inpatient-only, they are appropriately provided as inpatient services in accordance with the 2-midnight benchmark. Estimated LOS (days): 2 days is the estimated time the patient will need to remain in the hospital, assuming treatment plan goals are met and no additional complications. Post-Hospital Plan: Home Krishna Tobias MD Jun 14, 2017 07:55
[2017-06-14 08:00] VITALS: BP 102/63; PULSE 74; RESP 16; TEMP 97.6; O2SAT 98
[2017-06-14] MEDS: CIPROFLOXACIN 400 MG PREMIX 200 ML IV SCH ×2 (08:33→19:31)
[2017-06-14] MEDS: SODIUM CHLORIDE 0.9% FLUSH 10 ML FLUSH IV FLUSH SCH ×2 (08:41→19:31)
[2017-06-14] MEDS: DOCUSATE SODIUM 50 MG/SENNA 8.6 MG TAB PO SCH ×2 (08:42→19:30)
[2017-06-14 12:00] VITALS: BP 95/61; PULSE 64; RESP 16; TEMP 98.5; O2SAT 95
[2017-06-14 13:40] LABS: FERRITIN 5 NG/ML (8-252); TRANSFERRIN IRON PROFILE 244 MG/DL (200-360)
[2017-06-14 16:00] VITALS: BP 100/73; PULSE 83; RESP 16; TEMP 99.3; O2SAT 100
[2017-06-14 20:00] VITALS: BP 125/82; PULSE 94; RESP 18; TEMP 100.4; O2SAT 99
[2017-06-15] VITALS: BP 98/70; PULSE 81; RESP 16; TEMP 97.2; O2SAT 98
[2017-06-15] MEDS: SODIUM CHLOR 0.9% 1000 ML INJ 1,000 ML IV SCH ×3 (01:37→20:16)
[2017-06-15] MEDS: HYDROmorphone HCL PF 1 MG/ML VIAL IV PRN ×2 (04:44→08:17)
[2017-06-15 08:00] VITALS: BP 118/66; PULSE 93; RESP 16; TEMP 99.1; O2SAT 99
[2017-06-15] MEDS: CIPROFLOXACIN 400 MG PREMIX 200 ML IV SCH ×2 (08:00→20:17)
--- NOTE | 2017-06-15 08:01 | HHI.PR ---
Subjective Remarks in no acute distress. still with some left flank pain but says that could sleep better last night. low grade fever last night. no nausea or vomiting. Objective Vitals Vital Signs Date Time Temp Pulse Resp B/P Pulse Ox O2 Delivery O2 Flow Rate FiO2 06/15/17 00:00 97.2 81 16 98/70 98 06/14/17 20:00 100.4 94 18 125/82 99 06/14/17 16:00 99.3 83 16 100/73 100 06/14/17 12:00 98.5 64 16 95/61 95 06/14/17 08:00 97.6 74 16 102/63 98 I/O 06/14/17 06/14/17 06/14/17 06/15/17 06/15/17 06/15/17 06:59 14:59 22:59 06:59 14:59 22:59 Intake Total 0 ml 420 ml 240 ml Output Total 300 ml 200 ml Balance -300 ml 220 ml 240 ml Intake Oral 0 ml 420 ml 240 ml Output Urine Total 300 ml 200 ml # Voids 0 1 3 # Bowel Movements 0 0 0 Result Diagram: 06/14/17 0515 06/14/1715 Objective Remarks GENERAL: This is a well-nourished, well-developed patient, in no apparent distress. CARDIOVASCULAR: Regular rate and regular rhythm without murmurs, gallops, or rubs. RESPIRATORY: Clear to auscultation. Breath sounds equal bilaterally. No wheezes , rales, or rhonchi. GASTROINTESTINAL: Abdomen soft, left flank tenderness, nondistended. Normal, active bowel sounds MUSCULOSKELETAL: Extremities without clubbing, cyanosis, or edema. NEURO: Alert & Oriented x4 to person, place, time, situation. Moves all ext x4 Medications and IVs Current Medications Ondansetron HCl (Zofran Inj) 4 mg ONCE ONCE IVP Last administered on 19:52; Start 06/13/17 at 19:45; Stop 06/13/17 at 19:46; Status DC Pantoprazole Sodium 40 mg 40 mg ONCE ONCE IVP Last administered on 06/13/17 19:51; Start 06/13/17 at 19:45; Stop 06/13/17 at 19:46; Status DC Sodium Chloride (NS 1000 ml Inj) 1,000 ml @ 125 mls/hr Q8H IV Last administered on 06/13/17 19:52; Start 06/13/17 at 19:39; Stop 06/14/17 at 03:38 ; Status DC Hydromorphone HCl 1 mg 1 mg ONCE ONCE IVS Last administered on 06/13/17 19:52 ; Start 06/13/17 at 19:45; Stop 06/13/17 at 19:46; Status DC Ciprofloxacin/ Dextrose 200 ml @ 200 mls/hr Q12H IV Last administered on 19:31; Start 06/13/17 at 20:00 Sodium Chloride (NS 1000 ml Inj) 1,000 ml @ 100 mls/hr Q10H IV Last administered on 06/15/17 01:37; Start 06/13/17 at 19:49 Sodium Chloride (NS Flush) 2 ml UNSCH PRN IV FLUSH FLUSH AFTER USING IV ACCESS ; Start 06/13/17 at 20:00 Sodium Chloride (NS Flush) 2 ml BID IV FLUSH Last administered on 06/14/17 19: 31; Start 06/13/17 at 21:00 Ondansetron HCl (Zofran Inj) 4 mg Q6H PRN IVP NAUSEA OR VOMITING Last administered on 06/14/17 23:28; Start 06/13/17 at 20:00 Acetaminophen (Tylenol) 650 mg Q6H PRN PO FEVER/PAIN SCALE 1 TO 2 Last administered on 06/14/17 19:30; Start 06/13/17 at 20:00 Acetaminophen/ Hydrocodone Bitart (Muse 5-325 Mg) 1 tab Q4H PRN PO PAIN SCALE 3 TO 5; Start 06/13/17 at 20:00 Hydromorphone HCl (Dilaudid Pf Inj) 1 mg Q3H PRN IV Pain 6-10 Last administered on 06/15/17 04:44; Start 06/13/17 at 20:00 Senna/Docusate Sodium (Sally-Colace) 1 tab BID PO Last administered on 19:30; Start 06/13/17 at 21:00 Magnesium Hydroxide (Milk Of Magnesia Liq) 30 ml Q12H PRN PO MILD - MODERATE CONSTIPATION; Start 06/13/17 at 20:00 Sennosides (Senokot) 17.2 mg Q12H PRN PO MODERATE - SEVERE CONSTIPATION; Start 06/13/17 at 20:00 Bisacodyl (Dulcolax Supp) 10 mg DAILY PRN RECTAL SEVERE CONSITIPATION; Start at 20:00 Lactulose (Lactulose Liq) 30 ml DAILY PRN PO SEVERE CONSITIPATION; Start at 20:00 A/P Assessment and Plan A/P - nephrolithiasis with left sided hydronephrosis continue with supportive care with IV fluid, pain control and antiemetics as needed. urology consulted. -anemia- hypochromic, microcytic- chronic- due to iron deficiency due to menorrhagia- f/u as outpatient with PCP and [facility] and this was d/w the patient. Discharge Planning awaiting urology work-up and recommendations. Krishna Tobias MD Jun 15, 2017 08:01
[2017-06-15] MEDS ORDERED: FERR325T8 PO (08:03)
[2017-06-15] MEDS: SODIUM CHLORIDE 0.9% FLUSH 10 ML FLUSH IV FLUSH SCH ×2 (08:09→20:17)
[2017-06-15] MEDS: DOCUSATE SODIUM 50 MG/SENNA 8.6 MG TAB PO SCH ×2 (08:10→20:16)
[2017-06-15] MEDS: ONDANSETRON HCL 4 MG/2 ML VIAL IVP PRN (08:17)
[2017-06-15 08:57] LABS: AUTOMATED NEUTROPHIL # 6.7 TH/MM3 (1.8-7.7); BASOPHIL % 0.4 % (0.0-2.0); EOSINOPHIL # 0.1 TH/MM3 (0-0.4); EOSINOPHIL % 0.9 % (0.0-4.0); HEMATOCRIT 28.3 % (35.0-46.0); MEAN CELL VOLUME 74.4 FL (80.0-100.0); MEAN CORPUSCULAR HEMOGLOBIN 23.4 PG (27.0-34.0); MEAN CORPUSCULAR HGB CONC 31.4 % (32.0-36.0); MONO % 10.5 % (0.0-8.0); NEUT % 76.2 % (16.0-70.0); PLATELET COUNT 128 TH/MM3 (150-450); RED BLOOD COUNT 3.81 MIL/MM3 (4.00-5.30); RED CELL DISTRIBUTION WIDTH 16.7 % (11.6-17.2); WHITE BLOOD COUNT 8.7 TH/MM3 (4.0-11.0)
[2017-06-15 09:08] LABS: HEMO FLAGS AUTO DIFF
[2017-06-15] MEDS ORDERED: MIDAZOLAM HCL 2 MG/2 ML VIAL ONE (09:16)
[2017-06-15] MEDS ORDERED: APREPITANT 40 MG CAP ONE (09:16)
[2017-06-15 09:33] LABS: OVALOCYTES 2+ (NORMAL); PLATELET ESTIMATE SMEAR LOW (NORMAL); PLATELET MORPHOLOGY NORMAL (NORMAL); SCAN/DIFF AUTO DIFF CONFIRMED
--- NOTE | 2017-06-15 10:55 | MB ---
cc: MARLO ROBBINS DATE OF CONSULTATION: 06/15/2017 HISTORY OF PRESENT ILLNESS Ms. Armando is a 26-year-old female with history of nephrolithiasis who was admitted to [facility] with left-sided flank pain. She was seen two days prior and a CT scan revealed a 4-5 mm left mid ureteral stone with hydronephrosis. Over this time she has had persistent nausea and vomiting at home and is not able to be managed adequately on an outpatient basis. She has a history of stones in the past and has undergone cystoscopy. PAST MEDICAL HISTORY 1. Kidney stones. 2. Neuromuscular disorder. PAST SURGICAL HISTORY Cystoscopy. ALLERGIES 1. LATEX. 2. SHELLFISH. 3. OMNICEF. 4. SEAFOOD. FAMILY HISTORY Denies any history of malignancies. SOCIAL HISTORY She denies any smoking or drinking. REVIEW OF SYSTEMS She notes fever and chills. She does note nausea and vomiting and left-sided flank pain. She does also note some abdominal pain. She does note hematuria and dysuria also. The remaining review of systems were reviewed and are negative. PHYSICAL EXAMINATION VITAL SIGNS: Temperature 99.1, heart rate 93, respiratory rate 16, blood pressure 118/66. 99% on room air. GENERAL: She is a well-developed, well-nourished 26-year-old female in no acute distress. HEENT: Normocephalic, atraumatic. Pupils equal, round and react to light. Extraocular movements intact. NECK: Supple. HEART: Regular rate and rhythm. LUNGS: Clear. ABDOMEN: Soft, nontender, nondistended. BACK: At present she has mild left CVA tenderness. EXTREMITIES: No cyanosis, clubbing or edema. SKIN: There is no lesion. PSYCH: Generalized mood. IMAGING STUDIES Imaging studies show a recent CT scan which showed a 4-5 mm left mid ureteral stone with hydronephrosis. LABORATORY VALUES White count is 8.7, hemoglobin 8.9, hematocrit 28.3, platelet count 128. Sodium 145, potassium 3.8, chloride 113, CO2 24.3, BUN 8, creatinine 0.9, glucose 85. ASSESSMENT A 26-year-old female with a mid left ureteral stone causing pain with nausea and vomiting. PLAN/RECOMMENDATIONS The patient will require cystoscopy with left double-J stent insertion followed by extracorporeal shock wave lithotripsy in the future. The risks and benefits were discussed and she was willing to proceed. Marlo MILES/DIANN /10:11 AM /10:49 AM
[2017-06-15 12:00] VITALS: BP 109/70; PULSE 76; RESP 16; TEMP 98.7; O2SAT 97
[2017-06-15] MEDS ORDERED: IOHEXOL 350 MG/ML 50 ML BTL (for RAD DIAG) ONE (12:00)
[2017-06-15] MEDS ORDERED: SODIUM CHLORIDE 0.9% 10 ML VIAL IV FLUSH ONE (12:00)
[2017-06-15] MEDS ORDERED: PROPOFOL 200 MG/20 ML AMP IV ONE (12:00)
[2017-06-15] MEDS ORDERED: ONDANSETRON HCL 4 MG/2 ML VIAL IV PUSH ONE (12:00)
[2017-06-15 16:00] VITALS: BP 97/48; PULSE 96; RESP 16; TEMP 98.8; O2SAT 100
[2017-06-15 18:17] VITALS: BP 104/68
[2017-06-15] MEDS: ACETAMINOPHEN/HYDROcodone 325 MG/5 MG TAB PO PRN (18:35)
[2017-06-15 20:00] VITALS: BP 102/64; PULSE 84; RESP 16; TEMP 98.7; O2SAT 100
[2017-06-15] MEDS: FERROUS SULFATE 325 MG (65 MG ELEMENTAL IRON) TAB PO SCH (20:16)
[2017-06-16] VITALS: BP 110/66; PULSE 87; RESP 16; TEMP 97.4; O2SAT 99
[2017-06-16] MEDS: ACETAMINOPHEN/HYDROcodone 325 MG/5 MG TAB PO PRN (04:46)
[2017-06-16 08:00] VITALS: BP 116/70; PULSE 71; RESP 16; TEMP 98.3; O2SAT 98
[2017-06-16] MEDS ORDERED: ONDANSETRON HCL 4 MG/2 ML VIAL IV PUSH ONE (09:30)
[2017-06-16] MEDS ORDERED: IRON SUCROSE 100 MG/5 ML VIAL IV PUSH ONE (09:30)
[2017-06-16] MEDS ORDERED: HYDR-3516 PO (09:35)
[2017-06-16] MEDS ORDERED: CIPR500T2 PO (09:35)
--- NOTE | 2017-06-16 09:37 | HHI.DCPOC ---
Discharge Care Plan Diagnosis: (1) Nephrolithiasis (2) Urinary tract infection (3) Iron deficiency anemia Goals to Promote Your Health * To prevent worsening of your condition and complications * To maintain your health at the optimal level Directions to Meet Your Goals Take your medications as prescribed Follow your dietary instruction Follow activity as directed Keep your appointments as scheduled Take your immunizations and boosters as scheduled If your symptoms worsen call your PCP, if no PCP go to Urgent Care Center or Emergency Room Smoking is Dangerous to Your Health. Avoid second hand smoke Call the 24-hour hour crisis hotline for domestic abuse at Alok Eller DO Jun 16, 2017 09:37
[2017-06-16] MEDS: DOCUSATE SODIUM 50 MG/SENNA 8.6 MG TAB PO SCH (09:40)
[2017-06-16] MEDS: CIPROFLOXACIN 400 MG PREMIX 200 ML IV SCH (09:40)
[2017-06-16] MEDS: SODIUM CHLORIDE 0.9% FLUSH 10 ML FLUSH IV FLUSH SCH (09:41)
--- NOTE | 2017-06-16 09:46 | HHI.PR ---
Subjective Remarks The pt was feeling well this AM. She said she got GI upset from the iron pills. She wanted to eat breakfast. She has had blood in her urine. Family at the bedside. Discussed with nursing. Objective Vitals Vital Signs Date Time Temp Pulse Resp B/P Pulse Ox O2 Delivery O2 Flow Rate FiO2 06/16/17 08:00 98.3 71 16 116/70 98 06/16/17 00:00 97.4 87 16 110/66 99 06/15/17 20:00 98.7 84 16 102/64 100 06/15/17 18:17 104/68 06/15/17 16:00 98.8 96 16 97/48 100 06/15/17 12:00 98.7 76 16 109/70 97 06/15/17 10:45 98.9 78 16 116/66 97 Room Air 06/15/17 10:35 82 16 113/65 96 Room Air 06/15/17 10:17 99.0 90 16 101/65 96 Room Air I/O 06/15/17 06/15/17 06/15/17 06/16/17 06/16/17 06/16/17 07:00 15:00 23:00 07:00 15:00 23:00 Intake Total 240 ml 990 ml 300 ml 800 ml Balance 240 ml 990 ml 300 ml 800 ml Intake Oral 240 ml 340 ml IV Total 300 ml 800 ml Other 650 ml # Voids 3 2 2 # Bowel Movements 0 1 Result Diagram: 06/15/17 0854 06/14/17 0515 Objective Remarks GENERAL: This is a well-nourished, well-developed patient, in no apparent distress. CARDIOVASCULAR: Regular rate and regular rhythm without murmurs, gallops, or rubs. RESPIRATORY: Clear to auscultation. Breath sounds equal bilaterally. No wheezes , rales, or rhonchi. GASTROINTESTINAL: Abdomen soft, left flank tenderness, nondistended. Normal, active bowel sounds MUSCULOSKELETAL: Extremities without clubbing, cyanosis, or edema. NEURO: Alert & Oriented x4 to person, place, time, situation. Moves all ext x4 Procedures Cystoscopy Medications and IVs Current Medications Medications (Trade) Dose Ordered Sig/Zulay Route Start Time Stop Time Status Last Admin Ciprofloxacin/ Dextrose 200 ml @ 200 mls/hr Q12H IV 06/13/17 20:00 06/15/17 20:17 (NS 1000 ml Inj) 1,000 ml @ 100 mls/hr Q10H IV 06/13/17 19:49 06/15/17 20:16 (NS Flush) 2 ml UNSCH PRN IV FLUSH 06/13/17 20:00 (NS Flush) 2 ml BID IV FLUSH 06/13/17 21:00 06/15/17 20:17 (Zofran Inj) 4 mg Q6H PRN IVP 06/13/17 20:00 06/15/17 08:17 (Tylenol) 650 mg Q6H PRN PO 06/13/17 20:00 06/14/17 19:30 (Royal 5-325 Mg) 1 tab Q4H PRN PO 06/13/17 20:00 06/16/17 04:46 (Dilaudid Pf Inj) 1 mg Q3H PRN IV 06/13/17 20:00 06/15/17 08:17 (Sally-Colace) 1 tab BID PO 06/13/17 21:00 06/15/17 20:16 (Milk Of Magnesia Liq) 30 ml Q12H PRN PO 06/13/17 20:00 (Senokot) 17.2 mg Q12H PRN PO 06/13/17 20:00 (Dulcolax Supp) 10 mg DAILY PRN RECTAL 06/13/17 20:00 (Lactulose Liq) 30 ml DAILY PRN PO 06/13/17 20:00 (Ferrous Sulfate) 325 mg BID PO 06/15/17 21:00 06/15/17 20:16 A/P Problem List: (1) Nephrolithiasis ICD Code: N20.0 Status: Acute Assessment and Plan Nephrolithiasis with left sided hydronephrosis Noted on CT of the abdomen. Urology was consulted. She was continued on IV Cipro. S/p cystoscopy with double-J stent insertion. - pain control and antiemetics as needed. - outpt follow-up with urology, plan for ESWL. - complete course of PO Cipro. Iron deficiency anemia S/t menorrhagia. - f/u as outpatient with PCP and [facility] and this was d/w the patient. - repeat CBC in 3-5 days. - Venofer 100 mg IV x 1. Start ferrous sulfate BID. Thrombocytopenia Plt count has been low normal in the past. - repeat CBC in 3-5 days. - follow up with PCP. PPx: SCDs Discharge Planning Anticipate d/c home later today Alok Eller DO Jun 16, 2017 09:46
[2017-06-16] MEDS: FERROUS SULFATE 325 MG (65 MG ELEMENTAL IRON) TAB PO SCH (10:18)
--- NOTE | 2017-06-16 11:29 | HHI.DS ---
Discharge Summary Admission Date Jun 13, 2017 at 19:59 Discharge Date: Jun 16, 2017 Admitting Diagnosis nephrolithiasis. Intractable pain. (1) Nephrolithiasis ICD Code: N20.0 Diagnosis: Principal (2) Iron deficiency anemia ICD Code: D50.9 Diagnosis: Principal (3) Urinary tract infection ICD Code: N39.0 Procedures Cystoscopy Brief History - From Admission patient is a 26 y/o female with history of nephrolithiasis who presented to ER with left flank pain. she says that the pain started two days ago. pain was localized to left flank. pain was associated with nausea and vomiting. she came to ER and was discharged with cipro and percoect. she says that the pain didn't subside despite taking the pain medications. she reports some fever and chills at home along with dysuria and gross hematuria. she has a history of kidney stone and she says that she had cystoscopy last October. CBC/BMP: 06/15/17 0854 06/14/17 0515 Significant Findings Laboratory Tests Test 06/13/17 06/14/17 06/15/17 19:30 05:15 08:54 Hemoglobin 9.4 GM/DL 8.6 GM/DL 8.9 GM/DL (11.6-15.3) (11.6-15.3) (11.6-15.3) Hematocrit 30.4 % 28.2 % 28.3 % (35.0-46.0) (35.0-46.0) (35.0-46.0) Mean Corpuscular Volume 75.3 FL 74.9 FL 74.4 FL (80.0-100.0) (80.0-100.0) (80.0-100.0) Mean Corpuscular Hemoglobin 23.2 PG 22.8 PG 23.4 PG (27.0-34.0) (27.0-34.0) (27.0-34.0) Mean Corpuscular Hemoglobin 30.9 % 30.4 % 31.4 % Concent (32.0-36.0) (32.0-36.0) (32.0-36.0) Platelet Count 144 TH/MM3 121 TH/MM3 128 TH/MM3 (150-450) (150-450) (150-450) Mean Platelet Volume 12.7 FL 12.0 FL 11.3 FL (7.0-11.0) (7.0-11.0) (7.0-11.0) Neutrophils (%) (Auto) 72.3 % 74.3 % 76.2 % (16.0-70.0) (16.0-70.0) (16.0-70.0) Monocytes (%) (Auto) 10.8 % 12.3 % 10.5 % (0.0-8.0) (0.0-8.0) (0.0-8.0) Monocytes # (Auto) 1.1 TH/MM3 1.1 TH/MM3 (0-0.9) (0-0.9) Platelet Estimate LOW (NORMAL) LOW (NORMAL) LOW (NORMAL) Ovalocytes 2+ (NORMAL) 1+ (NORMAL) 2+ (NORMAL) Chloride Level 112 MEQ/L 113 MEQ/L (98-107) (98-107) Estimat Glomerular Filtration 72 ML/MIN (>89) 76 ML/MIN (>89) Rate Calcium Level 8.4 MG/DL 8.2 MG/DL (8.5-10.1) (8.5-10.1) Red Blood Count 3.76 MIL/MM3 3.81 MIL/MM3 (4.00-5.30) (4.00-5.30) Rouleau PRESENT (NORMAL) Iron Level 36 MCG/DL (50-170) Percent Iron Saturation 10.5 % (20-50) Ferritin 5 NG/ML (8-252) Aspartate Amino Transf 11 U/L (15-37) (AST/SGOT) Total Protein 6.3 GM/DL (6.4-8.2) Albumin 3.3 GM/DL (3.4-5.0) PE at Discharge GENERAL: This is a well-nourished, well-developed patient, in no apparent distress. CARDIOVASCULAR: Regular rate and regular rhythm without murmurs, gallops, or rubs. RESPIRATORY: Clear to auscultation. Breath sounds equal bilaterally. No wheezes , rales, or rhonchi. GASTROINTESTINAL: Abdomen soft, left flank tenderness, nondistended. Normal, active bowel sounds MUSCULOSKELETAL: Extremities without clubbing, cyanosis, or edema. NEURO: Alert & Oriented x4 to person, place, time, situation. Moves all ext x4 Hospital Course Nephrolithiasis with left sided hydronephrosis Noted on CT of the abdomen. Urology was consulted. She was continued on IV Cipro. S/p cystoscopy with double-J stent insertion. She received pain control and antiemetics as needed. She will have outpt follow-up with urology, who is planning for ESWL. She will complete a course of PO Cipro. Iron deficiency anemia S/t menorrhagia. She was told to follow outpatient with a PCP and OBGYN. She will have a repeat CBC in 3-5 days. She received Venofer 100 mg IV x 1. She will be d/c on ferrous sulfate BID. Thrombocytopenia Plt count has been low normal in the past. She will repeat a CBC in 3-5 days and will follow up with her PCP. Pt Condition on Discharge: Good Discharge Disposition: Discharge Home Discharge Time: > 30 minutes Discharge Instructions DIET: Follow Instructions for: As Tolerated, No Restrictions Activities you can perform: Weight Bearing as Ernestina Follow up Referrals: [facility] - 1 Week PCP Follow-up - 1 Week Urology - 1 Week with Leobardo Zamora DO New Orders: CBC NO DIFF - 3-5 Days New Medications: Ciprofloxacin (Ciprofloxacin) 500 Mg Tab 500 MG PO BID Infection #6 Ref 0 TAB Ferrous Sulfate (Ferrous Sulfate) 325 Mg (65 Mg Iron) Tablet 325 MG PO BIDPC Nutritional Supplement #60 Ref 0 TAB Hydrocodone-Acetaminophen (Hydrocodone-Acetaminophen) 5-325 mg Tab 1 TAB PO Q4H PRN PAIN SCALE 1 TO 10 #10 TAB Continued Medications: Ondansetron Odt (Zofran Odt) 4 Mg Tab 4 MG SL Q6HR PRN Nausea/Vomiting #10 Ref 0 TAB Discontinued Medications: Ciprofloxacin (Cipro) 500 Mg Tab 500 MG PO BID Infection #7 Ref 0 TAB Oxycodone-Acetaminophen (Percocet) 5-325 mg Tab 1 TAB PO Q6H PRN PAIN #12 Ref 0 TAB Phenazopyridine (Pyridium) 100 Mg Tab 100 MG PO Q8HR Dysuria Days 3 Ref 0 TAB Tamsulosin (Flomax) 0.4 Mg Cap 0.4 MG PO HS Manage Prostate Problems #7 Ref 0 CAP Alok Eller DO Jun 16, 2017 11:29
[2017-06-16 12:00] VITALS: BP 118/74; PULSE 70; RESP 16; TEMP 98.3; O2SAT 99
--- NOTE | 2017-06-17 10:05 | MP ---
cc: MARLO ZAMORA DATE OF SURGERY: 06/15/2017 PREOPERATIVE DIAGNOSIS Left hydronephrosis with mid left ureteral stone. POSTOPERATIVE DIAGNOSIS Left hydronephrosis with mid left ureteral stone. PROCEDURE Cystoscopy, left retrograde study, left double-J stent insertion. SURGEON Noah. ANESTHESIA General LMA. FLUIDS 500 cc crystalloid. ESTIMATED BLOOD LOSS No blood loss. COMPLICATIONS No complications. DRAINS 6-Israeli, 22 cm left double-J stent. CONDITION She tolerated the procedure well and was transferred to the recovery room in stable condition. INDICATION Alix Armando is a 26-year-old female who presented with a 5-6 mm left mid ureteral stone causing pain and hydronephrosis. Decision was made to bring the patient to the operating room to undergo cystoscopy, left retrograde study followed by left double-J stent insertion. Risks and benefits were discussed preoperatively and she was willing to proceed. DETAILS OF PROCEDURE The patient was brought to the operating room, identified by myself as Alix Armando. She was placed in the dorsal lithotomy position, prepped and draped in the usual sterile fashion. She received preprocedure antibiotics. General LMA anesthesia was administered. A 22-Israeli cystoscope was inserted in the bladder and pancystoscopy did not reveal any abnormalities. Trigonitis was noted on exam, however. The left ureteral orifice was identified and a 5-Israeli open-ended catheter was inserted into the left ureteral orifice and a retrograde study was performed. A large amount of hydronephrosis was noted on the left but I was unable to visualize a stone in the proximal ureter. An 0.35 Sensor wire was then passed with a good curl in the kidney and then following this a 6-Israeli, 22 cm left double-J stent was placed with a good curl in the kidney and a good curl in the bladder. The bladder was evacuated. She was awoken and transferred to Recovery in stable condition. She will follow-up for extracorporeal shock wave lithotripsy in the near future. Marlo Zamora SWT/BT /10:14 AM /9:55 AM
== END 2017-06-16 12:49 | disposition home or self-care (01) | DRG 694 ==
LOC: PHED 17:31 → PHEDA 19:59 → PH3A 21:05
PROVIDERS: ADMIT Hospitalist; ATTEND Hospitalist
PROC: 0T778DZ Dilation of Left Ureter with Intraluminal Device, Via Natural or Artificial Opening Endoscopic (ICD-10-PCS; principal; 2017-06-15 09:28)
DX: N13.2 Hydronephrosis with renal and ureteral calculous obstruction (principal); G70.9 Myoneural disorder, unspecified; N39.0 Urinary tract infection, site not specified; D50.9 Iron deficiency anemia, unspecified; R31.0 Gross hematuria; N92.0 Excessive and frequent menstruation with regular cycle; Z87.442 Personal history of urinary calculi
CPT/HCPCS: 36415; 74420; 76000; 76937; 80048; 80053; 82728; 83540; 83550; 84703; 85025; C1769; C2617; C9113; J0744; J1170; J1756; J2250; J2405; J3010; J7030; J8501; Q9967

== ENCOUNTER → 2017-06-23 | Day surgery (SDC) | payer OTHER ==
[~2017-06-23] MED LIST changes: +CHLORHEXIDINE GLUCONATE 2 % 1 PACK (2 CLOTHS) TOPICAL PRN; -CIPR-9 PO; +FERR325T8 PO; +HYDR-3516 PO; -HYDR-3533 PO; +INSULIN HUMAN REGULAR 1,000 UNITS/10 ML VIAL SQ PRN; +LACTATED RINGER'S 1000 ML IV PRN; +METOPROLOL TARTRATE 25 MG TAB PO PRN; -PERC5TAB12 PO; -PHEN0.4T PO; +POVIDONE IODINE 5% (ANTISEPSIS KIT) 4 APPLICATIONS EACH NARE PRN; +SODIUM CHLORID 0.9% 500 ML IV PRN; -TAMS5CAP PO; +ceFAZolin 1,000 MG/NS 100 ML IV SCH
--- NOTE | 2017-06-23 07:31 | RADRPT ---
EXAM DATE/TIME: 06/23/2017 06:58 [facility] COMPARISON: No previous studies available for comparison. EXTERNAL COMPARISON : [facility] June 22, 2017 INDICATIONS : Pre-op for left kidney stone. MEDICAL HISTORY : Renal calculi SURGICAL HISTORY : Left stent placed. Stone removal. ENCOUNTER: Initial ACUITY: 1 day PAIN SCORE: 0/10 LOCATION: Bilateral chest FINDINGS: Supine view of the abdomen was performed. The abdominal bowel gas pattern is normal. There is a pig tail catheter identified overlying the left renal pelvis and bladder. No abnormal masses, calcificati ons, or organomegaly is seen. The osseous structures are unremarkable. CONCLUSION: No visible renal stones.. Janette Tobin MD on June 23, 2017 at 7:29 Board Certified Radiologist. This report was verified electronically.
== END | disposition home or self-care (01) ==
LOC: HSDC 06:29
PROVIDERS: ATTEND Urology
DX: N20.0 Calculus of kidney (principal); Z53.09 Procedure and treatment not carried out because of other contraindication
CPT/HCPCS: 74000; 99211; G0463